=== PATIENT | female | born 2000 | race Native Hawaiian/Other Pacific Islander ===

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

== ENCOUNTER 2021-07-07 13:55 | Emergency (ER) | payer OTHER ==
[~2021-07-07] VITALS: Ht 180.3 cm; Wt 59.0 kg
[2021-07-07 14:01] VITALS: TEMP 98.1
[2021-07-07 14:46] VITALS: BP 101/56
== END 2021-07-07 14:46 | disposition home or self-care (01) ==
LOC: ED 13:55
DX: M77.8 Other enthesopathies, not elsewhere classified (principal)
CPT/HCPCS: 99282